=== PATIENT | female | born 1935 | race Caucasian/White ===

== ENCOUNTER 2016-11-15 17:54 | Inpatient (IN) | payer MEDICARE, OTHER ==
[~2016-11-15] VITALS: Ht 152.4 cm; Wt 46.3 kg
[2016-11-15 21:50] VITALS: BP 99/58
--- NOTE | 2016-11-15 21:56 | NUR ---
Patient arrived on unit awake and alert and interacting appropriately. V/S WNL. Patient is an 81yo female admitted for L1 fracture of the lumbar spine. Patient is on 2L oxygen per MD order. Respirations are unlabored. No signs of distress noted. Patient is able to verbalize needs. Patient is bedbound, with a francisco catheter & IV access on left forearm. Skin is warm, dry & pink. Patient has Sacral redness, Bruising on her left elbow, bruising on her right forearm, an abrasion on her right finley, and a skin tear on her right elbow. No pain or discomfort reported by patient when asked. Bed placed in high hair position for comfort per patients request, bed in lowest position with 3/4 side rails up and bed alarm on for safety. Will continue to monitor
[2016-11-15] MEDS ORDERED: CHOL10002 PO (22:58)
[2016-11-15] MEDS ORDERED: ATOR10TA PO (22:58)
[2016-11-15] MEDS ORDERED: ALPR0.255 PO (22:58)
[2016-11-15] MEDS ORDERED: SENN-18 PO (22:58)
[2016-11-15] MEDS ORDERED: CRAN300T PO (22:58)
[2016-11-15] MEDS ORDERED: DOCU100C36 PO (22:58)
[2016-11-15] MEDS ORDERED: BUDE10.22 INH (22:58)
[2016-11-15] MEDS ORDERED: MULT1TAB73 PO (22:58)
[2016-11-15] MEDS ORDERED: ENOX30DI5 SQ (22:58)
[2016-11-15] MEDS ORDERED: ALBU8.5H8 IH (22:58)
[2016-11-15] MEDS ORDERED: ASPI81TA44 PO (22:58)
--- NOTE | 2016-11-16 00:40 | NUR ---
IV in left forearm DC'd. Patient resting resting in bed comfortably. No signs of distress noted. Will continue to monitor
--- NOTE | 2016-11-16 05:00 | NUR ---
Patient still refusing to allow her francisco catheter to be discontinued. Educated patient about taking it out. Patient still refuses stating that she doesn't want to have it removed, because she isn't able to get out of bed yet, and she does not want to urinate in her bed or in a diaper. Patients says' "Tell the doctors that I refuse!" Will endorse to the on coming shift to F/U. Will continue to monitor
[2016-11-16 06:21] LABS: BASOPHILS % (AUTO) 0.6 % (0.0-2.0); EOSINOPHILS # (AUTO) 0.2 K/uL (0.0-0.7); EOSINOPHILS % (AUTO) 2.9 % (0.0-7.0); HEMATOCRIT 35.5 % (37-47); HEMOGLOBIN 11.7 G/DL (12.0-16.0); MEAN CORPUSCULAR HEMOGLOBIN 32.3 UUG (27.0-31.0); MEAN CORPUSCULAR HGB CONC 33 g/dL (32.0-37.0); MEAN CORPUSCULAR VOLUME 98.1 FL (81.0-99.0); MONOCYTES # (AUTO) 0.7 K/UL (0.1-1.30); MONOCYTES % (AUTO) 9.2 % (0.0-11.0); NEUTROPHILS # (AUTO) 5.8 K/UL (1.8-8.9); NEUTROPHILS % (AUTO) 74.3 % (38.5-71.5); PLATELET COUNT (AUTO) 230 K/UL (150-450); RED BLOOD CELL COUNT(AUTO) 3.62 MIL/UL (4.2-5.4); WHITE BLOOD COUNT (AUTO) 7.7 K/UL (4.0-11.2)
[2016-11-16 07:03] LABS: CHLORIDE 103 mmol/L (98-107); CHOLESTEROL 158 mg/dL (<200); CREATININE 0.5 mg/dL (0.6-1.3); GLUCOSE 86 mg/dL (74-106); HDL CHOLESTEROL 74 mg/dL (40-60); MAGNESIUM 2.1 mg/dL (1.8-2.4); PHOSPHOROUS 2.7 mg/dL (2.5-4.9); POTASSIUM 4.3 mmol/L (3.5-5.1); TRIGLYCERIDES 54 MG/DL (30-150); UREA NITROGEN, BLOOD 11 mg/dL (7-18)
--- NOTE | 2016-11-16 07:10 | NUR ---
RECEIVED PATIENT IN BED AWAKE, PATIENT REPORTS ANXIOUSNESS, AND WORRIED ABOUT NOT KEEPING HER MEDICATIONS AT THE BEDSIDE. MEDICATIONS REVIEWED AND SENT TO PHARMACY.
[2016-11-16 07:23] LABS: CARBON DIOXIDE 40 mmol/L (21-32)
--- NOTE | 2016-11-16 07:30 | NUR ---
CRITICAL LABS CALLED IN FROM LAB, CO2 40. CALLED PHYSICIAN TO LET HIM KNOW, AND NO ORDERS WERE MADE.
[2016-11-16 08:46] VITALS: BP 120/68
--- NOTE | 2016-11-16 18:35 | NUR ---
PATIENT HAS HAD ANXIOUS EPISODES THROUGHOUT THE DAY, AND REFUSES TO HAVE THE BUTLER REMOVED. PATIENT TOLERATED PT WITH PAIN MEDICATION.
[2016-11-16 20:53] VITALS: BP 133/67
--- NOTE | 2016-11-17 05:19 | NUR ---
AAOX4 LUNGS CTA ON O2 @ 1L VIA NASAL CANNULA, PULSE OX 94 % . NEEDS ATTENDED. SLEPT MOST OF THE SHIFT. DENIES ANY PAIN NOR ANY DISCOMFORT. WILL MONITOR PATIENT. HAD PERIODS OF ANXIETY THIS SHIFT XANAX GIVEN ORDERED AND WAS EFFECTIVE. BUTLER CATHETER DRAINING YELLOW URINE. WILL MONITOR PATIENT.
--- NOTE | 2016-11-17 07:10 | NUR ---
Received report from night club manager nurse, patient in bed awake, no evidence of distress noted. Received notification that patient's pulse ox is 88%, increased oxygen to 2L. WIll continue to monitor. Patient is asymptomatic.
[2016-11-17 08:00] VITALS: BP 116/68
--- NOTE | 2016-11-17 15:00 | NUR ---
Removed francisco catheter. Patient tolerated well.
--- NOTE | 2016-11-17 17:36 | NUR ---
Patient has had frequent episodes of anxiety throughout the day. Vitals remain within normal limits. Bed in low position, side rails up x2. Adult brief placed on patient to evaluate voiding pattern post francisco removal. Will continue to ronna.
[2016-11-17 21:46] VITALS: BP 121/68
--- NOTE | 2016-11-18 05:48 | NUR ---
AAOX4 GOMEZ'S VOIDING WELL. NEEDS ATTENDED. VITAL SIGNS STABLE. DENIES ANY PAIN NOR ANY DISCOMFORT. HAD ONE EPISODE OF ANXIETY, XANAX GIVEN. TOLERATED PO MEDS WELL. FALL PRECAUTIONS MAINTAINED. NEEDS ATTENDED. WILL MONITOR PATIENT. GENERAL WEAKNESS NOTED.
--- NOTE | 2016-11-18 07:30 | NUR ---
recieved patient on bed, sleeping comfortable. no discomfort noted.
[2016-11-18 08:00] VITALS: BP 115/52
--- NOTE | 2016-11-18 11:38 | NUR ---
family at bedside, supportive of patient care. glad of visit.
--- NOTE | 2016-11-18 14:44 | NUR ---
looking for her 2 pm medicine , none was due , stated its her anxiety xanax med. discussed with patient about the med not routinelly ordered. verbalized understanding.
--- NOTE | 2016-11-18 15:30 | NUR ---
less anxiety, effective xanax use.
--- NOTE | 2016-11-18 16:58 | NUR ---
visitor at bedside, supportive of care, good company per patient
--- NOTE | 2016-11-18 17:35 | NUR ---
had good bowel movement today, good result from dulcolax suppository. had small amount of mucoid scant reddish discharge from perineal area. patient denies pain or discomfort, just had francisco catheter removed early am, will monitor.
--- NOTE | 2016-11-18 19:17 | NUR ---
resting well, cont o2 as ordered. needed to rest in between activity for respiratory comfort.
[2016-11-18 20:57] VITALS: BP 154/78
--- NOTE | 2016-11-19 00:39 | NUR ---
Received pt on bed alert and awake. Able to make needs known. No acute distress noted. No complaints of pain or discomfort. No SOB. Vital signs stable BP 122/66, HR 94, RR 20, Temp 97.5, O2 sat 93%. On O2 via nasal cannula. Kept clean, dry and comfortable. Call light within reach. All needs attended. will continue to monitor.
--- NOTE | 2016-11-19 06:33 | NUR ---
Patient slept well throughout the shift. No complaints of pain. Had bowel movement 2x during the shift. Kept clean, dry and comfortable. Call light within reach. All needs attended.
--- NOTE | 2016-11-19 07:48 | NUR ---
Sleeping, comfortable. O2 at 1L/NC
[2016-11-19 08:15] VITALS: BP 115/55
--- NOTE | 2016-11-19 08:46 | NUR ---
Anxious before getting up with OT. Xanax po given. Inhaler given
--- NOTE | 2016-11-19 17:53 | NUR ---
Noted shortness of exertion. Instructed to rest in between bites. Refused to take Xanax at this time.
--- NOTE | 2016-11-19 19:45 | NUR ---
patient alert and oriented x4. Able to make needs known. No acute distress noted. No SOB noted. On o2 1L via nasal cannula. Vital signs stable. bed alarm on. Call light within reach. All needs attended
[2016-11-19 20:10] VITALS: BP 110/62
--- NOTE | 2016-11-20 06:50 | NUR ---
No acute distress noted. No SOB. Denies any pain. calm and cooperative to care. No episodes of anxiety attack. Still on o2 1L via nasal cannula. Call light within reach. All needs attended.
[2016-11-20 08:37] VITALS: BP 99/55
--- NOTE | 2016-11-20 13:53 | NUR ---
Rehab Team Conference 11/20/16
--- NOTE | 2016-11-20 14:20 | NUR ---
PT REQUESTED TO HAVE MEDICINE FOR C/O ANXIETY. MEDICATED WITH XANAX 0.25MG PO. PT ABLE TO SLEEP AND REST. DAUGHTER AT THE BEDSIDE.
--- NOTE | 2016-11-20 20:30 | NUR ---
received patient on bed awake. No acute distress noted. No SOB. All due meds given as ordered and well tolerated. Kept clean, dry and comfortable. Call light within reach. All needs attended.
--- NOTE | 2016-11-21 05:33 | NUR ---
Patient slept well throughout the shift. No episodes of anxiety noted. No acute distress. Calm and cooperative to care. All needs attended.
--- NOTE | 2016-11-21 07:58 | NUR ---
PT SLEEPING WHEN ROUNDS MADE . NO SIGNS AND SYMPTOMS OF DISTRESS . 02 NASAL CANNULA AT 2 L MIN USED .
[2016-11-21 08:09] VITALS: BP 102/46
[2016-11-21 20:16] VITALS: BP 100/57
--- NOTE | 2016-11-22 07:30 | NUR ---
117/63, 98%, 16 resp, 88 pulse, 97.9 F. Patient noted resting with eyes closed in bed, breathing unlabored, no signs of distress, no facial cues of pain noted, call light in reach, bed locked and in lowest position
[2016-11-22 10:17] VITALS: BP 117/63
[2016-11-22 20:06] VITALS: BP 106/60
--- NOTE | 2016-11-23 04:58 | NUR ---
QUIET NIGHT.NO ACUTE DISTRESS NOTED. TOLERATED PO MEDS WELL. DENIES ANY PAIN NOR ANY DISCOMFORT. NO SIGNS OF ANXIETY NOTED THIS SHIFT. WILL MONITOR PATIENT. KEPT COMFORTABLE. INCONTINENT OF BOWEL AND BLADDER. KEPT CLEAN AND DRY.
--- NOTE | 2016-11-23 07:30 | NUR ---
Received patient awake, alert and oriented x3. No complaints of pain or discomfort at this time. On O2 at 1 LPM. No SOB noted.
[2016-11-23 08:00] VITALS: BP 95/55
--- NOTE | 2016-11-23 09:19 | NUR ---
Tolerated medications well. Bedside commode available at bedside. Encouraged patient to call if she needs to use the bathroom. Up with physical therapy. Tolerating therapy well.
--- NOTE | 2016-11-23 17:53 | NUR ---
Still with O2 at 2 LPM. Awake and alert resting in bed. No SOB noted. Call light within reach. Encouraged to call for needs.
[2016-11-23 20:33] VITALS: BP 101/54
--- NOTE | 2016-11-24 05:24 | NUR ---
AAOX4 ON O2 @ 2l VIA NASAL CANNULA. PULSE OX 96% XANAX GIVEN FOF ANXIETY. SLEPT MOST OF THE SHIFT. NO RESPIRATORY DISTRESS NOTED.VITAL SIGNS STABLE. NEEDS ATTENDED. INCONTINENT OF URINE. KEPT CLEAN AND DRY. WILL MONITOR PATIENT. ASPIRATION PRECAUTIONS MAINTAINED.
--- NOTE | 2016-11-24 08:00 | NUR ---
Pt in bed awake, alert, oriented x3 denies any pain at this time, reposition fro comfort, call light in reach.
[2016-11-24 08:13] VITALS: BP 97/56
--- NOTE | 2016-11-24 12:30 | NUR ---
Pt in bed o2 2 L NC, reposition for comfort, no complaint of pain.
--- NOTE | 2016-11-24 18:19 | NUR ---
Pt in bed awake, alert, oriented x3, verbally responsive, denies any pain, no distress.
--- NOTE | 2016-11-24 20:00 | NUR ---
Received pt on bed alert, awake and oriented x4. Able to make needs known. No acute distress noted. No SOB noted. On o2 2L via nasal cannula. Complained of lower back pain, medicated with PRN norco, relief noted. Vital signs stable. Call light within reach. All needs attended. Will continue to monitor.
[2016-11-24 20:28] VITALS: BP 113/63
--- NOTE | 2016-11-25 06:02 | NUR ---
PT SLEPT WELL COMFORTABLY AT NIGHT. NO ACUTE DISTRESS NOTED. DENIES PAIN. KEPT CLEAN, DRY AND COMFORTABLE. CALL LIGHT WITHIN REACH. ALL NEEDS ATTENDED.
--- NOTE | 2016-11-25 07:30 | NUR ---
Sleeping, comfortable. O2 at 2L/NC with 96% O2 sat.
[2016-11-25 08:33] VITALS: BP 101/48
--- NOTE | 2016-11-25 09:30 | NUR ---
Out of bed with PT. Xanax po given prior to activity.
--- NOTE | 2016-11-25 16:46 | NUR ---
Anxious, no shortness of breath noted. Xanax po given.
--- NOTE | 2016-11-25 18:03 | NUR ---
Noted vomiting with dinner. Emesis bag given. Deep breathing instructed. Repositioned comfortably.
[2016-11-25 20:35] VITALS: BP 122/55
[2016-11-26 08:00] VITALS: BP 102/51
--- NOTE | 2016-11-26 10:47 | NUR ---
DAILY NOTE CALLED SON TO GO TO PHARMACY TO REFILL HER TWO INHALERS. THE DOSES ARE LOW. HE SAYS HE WILL CALL THE PHARMACY TODAY. I LET HER KNOW WHAT HER SON SAID
[2016-11-26 19:57] VITALS: BP 102/56
[2016-11-27 07:49] LABS: BASOPHILS % (AUTO) 0.5 % (0.0-2.0); EOSINOPHILS # (AUTO) 0.1 K/uL (0.0-0.7); EOSINOPHILS % (AUTO) 1.5 % (0.0-7.0); HEMATOCRIT 35.7 % (37-47); HEMOGLOBIN 11.8 G/DL (12.0-16.0); LYMPHOCYTES % (AUTO) 22.1 % (20.5-51.5); MEAN CORPUSCULAR HEMOGLOBIN 32.4 UUG (27.0-31.0); MEAN CORPUSCULAR HGB CONC 33 g/dL (32.0-37.0); MEAN CORPUSCULAR VOLUME 98.1 FL (81.0-99.0); MONOCYTES # (AUTO) 0.8 K/UL (0.1-1.30); MONOCYTES % (AUTO) 8.6 % (0.0-11.0); NEUTROPHILS % (AUTO) 67.3 % (38.5-71.5); PLATELET COUNT (AUTO) 356 K/UL (150-450); RED BLOOD CELL COUNT(AUTO) 3.64 MIL/UL (4.2-5.4); WHITE BLOOD COUNT (AUTO) 8.9 K/UL (4.0-11.2)
[2016-11-27 08:28] VITALS: BP 108/55
[2016-11-27 08:29] LABS: ALANINE AMINOTRANSFERASE 26 U/L (14-59); ALKALINE PHOSPHATASE 118 U/L (50-136); ASPARTATE AMINOTRANSFERASE 22 U/L (15-37); BILIRUBIN,TOTAL 0.3 mg/dL (0.2-1.0); CHLORIDE 103 mmol/L (98-107); CREATININE 0.5 mg/dL (0.6-1.3); GLUCOSE 89 mg/dL (74-106); MAGNESIUM 1.9 mg/dL (1.8-2.4); POTASSIUM 3.5 mmol/L (3.5-5.1); TOTAL PROTEIN, SERUM 6.2 g/dL (6.4-8.2); UREA NITROGEN, BLOOD 14 mg/dL (7-18)
[2016-11-27 08:48] LABS: CARBON DIOXIDE 41 mmol/L (21-32)
--- NOTE | 2016-11-27 13:15 | NUR ---
Interdisciplinary Team Summary
--- NOTE | 2016-11-27 19:30 | NUR ---
RECEIVED PATIENT FROM DAY SHIFT NURSE. REPORT GIVEN AT BEDSIDE. INTRODUCED SELF TO PATIENT. PATIENT LYING IN BED NO SIGNS OF PAIN OR DISTRESS. PATIENT A/O. CALL LIGHT PLACED WITHIN REACH OF PATIENT. WILL CONTINUE TO MONITOR PATIENT THROUGH OUT SHIFT.
[2016-11-27 20:39] VITALS: BP 94/48
--- NOTE | 2016-11-28 06:51 | NUR ---
PATIENT SLEEPING IN BED COMFORTABLY AT END OF SHIFT. NO SIGNS OF PAIN OR DISTRESS THROUGH OUT SHIFT. ALL NEEDS ATTENDED. VITALS STABLE. MEDICATIONS ADMINISTERED ORDERED. SHIFT REPORT TO DAY SHIFT NURSE.
[2016-11-28 08:00] VITALS: BP 127/65
--- NOTE | 2016-11-28 08:15 | NUR ---
Received patient awake, alert and oriented. No complaints of discomfort or pain at this time. No SOB noted. Still at O2 at 1LPM. Tolerated breakfast well. Morning medications given.
--- NOTE | 2016-11-28 09:46 | NUR ---
Up with physical therapy. tolerating therapy well.
--- NOTE | 2016-11-28 13:27 | NUR ---
PATIENT ANXIOUS. NO SOB NOTED VSS. PRN ALPRAZOLAM GIVEN.
--- NOTE | 2016-11-28 19:45 | NUR ---
Received pt in bed, awake alert and oriented and verbally responsive. Able to make needs known. No acute distress noted. Breathing even and unlabored, on 1LPM O2 via NC. Vital signs stable. No complaints of pain or discomfort at this time. Safety measures and fall precautions maintained. Call light within reach. Bed low, locked and side rails up x 2. Will continue to monitor.
[2016-11-28 20:00] VITALS: BP 93/50
--- NOTE | 2016-11-29 06:28 | NUR ---
Pt in bed, slept comfortably throughout the night. no complaints of pain or discomfort throughout the shift. On 1LPM O2 NC, saturation 96%. Tolerated all medications well. All safety measures and fall precautions maintained. Call light within reach and bed lowest position, locked and side rails up x 2.
[2016-11-29 07:57] VITALS: BP 104/59
--- NOTE | 2016-11-29 08:30 | NUR ---
192/59, 95% O2 ON 1 LITER , 16 RESPIRATIONS, 98.6 ORAL TEMP, 86 PULSE. SBAR RECEIVED FROM ACCOUNTING SYSTEM EXPERT NURSE, PATIENT NOTED RESTING IN BED WITH EYES CLOSED, NO RESPIRATORY DISTRESS NOTED, NO COMPLAINTS OF PAIN, PATIENT REQUESTED XANAX FOR INCREASING ANXIETY, CALL LIGHT IN REACH, BED IN LOWEST POSITION, TOLERATED ALL MEDICATIONS WELL, X2 SIDE RAILS IN PLACE
--- NOTE | 2016-11-29 19:20 | NUR ---
PATIENT IN BED RESTING, NO COMPLAINTS PAIN, NO SIGNS OF DISTRESS, CALL LIGHT IN REACH, BED IN LOWEST POSITION
--- NOTE | 2016-11-29 20:00 | NUR ---
Received patient on bed, awake alert and oriented x4. No acute distress noted. No SOB. No complaints of pain or discomfort. On O2 1L via nasal cannula. Vital signs stable. Kept clean, dry and comfortable. All due meds given as ordered and well tolerated. Call light within reach. All needs attended.
[2016-11-29 20:44] VITALS: BP 110/60
--- NOTE | 2016-11-30 05:50 | NUR ---
Patient slept comfortably throughout the night. No apparent distress. Denies pain. Kept clean, dry and comfortable. All needs attended.
[2016-11-30 08:13] VITALS: BP 114/59
--- NOTE | 2016-11-30 14:30 | NUR ---
D/C NOTE READY FOR D/C. SON CALLED TO COME AND PICK HER UP. SHE HAS BEEN DRESSED AND IS READY TO GO. PICS TAKEN D/C ORDER GIVEN. MEDS AND PRESCRIPTIONS DONE BY MD ALVARADO. BELONGINGS LIST DONE. PT AWARE SHE IS GOING HOME
[2016-11-30 14:55] VITALS: BP 114/59
== END 2016-11-30 15:00 | disposition home health service (06) | DRG 560 ==
PROVIDERS: ADMIT Physical Medicine & Rehabilitation Pain Medicine; ATTEND Physical Medicine & Rehabilitation Pain Medicine
DX: S32.019D Unspecified fracture of first lumbar vertebra, subsequent encounter for fracture with routine healing (principal); J96.11 Chronic respiratory failure with hypoxia; I11.0 Hypertensive heart disease with heart failure; I50.9 Heart failure, unspecified; F33.1 Major depressive disorder, recurrent, moderate; S32.10XD Unspecified fracture of sacrum, subsequent encounter for fracture with routine healing; W18.30XD Fall on same level, unspecified, subsequent encounter; E78.5 Hyperlipidemia, unspecified; F41.0 Panic disorder [episodic paroxysmal anxiety]; Z99.81 Dependence on supplemental oxygen; J44.9 Chronic obstructive pulmonary disease, unspecified; R26.9 Unspecified abnormalities of gait and mobility; Z87.891 Personal history of nicotine dependence; R53.81 Other malaise; D53.9 Nutritional anemia, unspecified
CPT/HCPCS: 36415; 82306; 83735; 84100; 85025; 92507; 92610; 97110; 97112; 97116; 97530; 97535; A4663; J1650; J7512